=== PATIENT | female | born 1945 | race Asian ===

== ENCOUNTER 2020-06-04 14:58 | Emergency (ER) | payer BC, MEDICARE ==
[~2020-06-04] VITALS: Ht 154.9 cm; Wt 51.0 kg
[2020-06-04 16:25] LABS: BASOPHILS % 0.9 % (0.0-2.0); EOSINOPHILS % 1.4 % (0.0-5.0); HEMATOCRIT. 31.9 % (36.0-48.0); LYMPHOCYTES % 19.6 % (20.0-50.0); MEAN CORPUSCULAR HEMOGLOBIN 33.9 pg (28.0-32.0); MEAN CORPUSCULAR VOLUME 98.4 fL (81.0-99.0); MEAN PLATELET VOLUME 7.4 fl (7.4-10.4); MONOCYTES % 10.1 % (2.0-8.0); PLATELET 376 x1000/uL (130-400); RED BLOOD CELL COUNT 3.24 mill/uL (4.2-5.4); RED CELL DISTRIBUTION WIDTH 12.5 % (11.6-14.6)
[2020-06-04 16:36] LABS: INR 0.9; PARTIAL THROMBOPLASTIN TIME 25.1 sec (23.4-31.0); PROTHROMBIN TIME 9.8 sec (9.6-11.0)
[2020-06-04 16:38] LABS: CHLORIDE 99 mEq/L (98-107)
[2020-06-04 21:57] VITALS: BP 148/82
== END 2020-06-04 22:21 | disposition short-term general hospital (02) ==
LOC: ER 14:58 → CANBEDREQ 23:09
DX: G90.9 Disorder of the autonomic nervous system, unspecified (principal); D64.9 Anemia, unspecified; E87.1 Hypo-osmolality and hyponatremia; K44.9 Diaphragmatic hernia without obstruction or gangrene; I10 Essential (primary) hypertension; E78.5 Hyperlipidemia, unspecified; L30.9 Dermatitis, unspecified
CPT/HCPCS: 36415; 71045; 74176; 80053; 83735; 84484; 85025; 86850; 86900; 93005; 99285

== ENCOUNTER → 2020-09-21 | Outpatient (CLI) | payer MEDICARE ==
[2020-09-21 13:21] LABS: HEPATITIS B SURFACE ANTIGEN NEGATIVE
[2020-09-21 13:50] LABS: HEPATITIS A AB IGM NEGATIVE (NEGATIVE)
[2020-09-22 08:11] LABS: ANTI-DNA DOUBLE STRANDED QUANT < 1 IU/mL (0-9); ANTI-NUCLEAR ANTIBODIES DIRECT Negative (Negative)
== END | disposition home or self-care (01) ==
LOC: LAB 11:20
PROVIDERS: ATTEND Internal Medicine Nephrology
DX: R60.9 Edema, unspecified (principal)
CPT/HCPCS: 36415; 86038; 86160; 86225; 86705; 86709; 86803; 87340